=== PATIENT | male | born 1945 | race Caucasian/White ===

== ENCOUNTER 2019-05-31 09:22 | Inpatient (IN) | payer MEDICARE, OTHER ==
[~2019-05-31] VITALS: Ht 162.6 cm; Wt 69.6 kg
--- NOTE | 2019-05-31 09:38 | NUR ---
PT TO ROOM FOR BEDSIDE TRIAGE
--- NOTE | 2019-05-31 10:29 | NUR ---
PT SITTING UP ON STRETCHER; STATES HE STILL FEELS SOB AT THIS TIME; IV ANTIBIOTICS INFUSING TO LAC IV; SITE APPEARS HEALTHY; O2 SAT READING 98%ON 3LNC; VS; WILL CONTINUE TO MONITOR
[2019-05-31 10:51] LABS: HEMATOCRIT 31.8 % (39.0-50.0); HEMOGLOBIN 10.1 g/dl (14.0-18.0); IMMATURE GRANULOCYTES 0.4 % (0.0-5.0); MEAN CELL VOLUME 110.8 fL CALC (80.0-100.0); MEAN CORPUSCULAR HGB 35.2 pG CALC (26.0-32.0); MEAN CORPUSCULAR HGB CONC 31.8 g/L CALC (32.0-36.0); NEUT# 11.61 thou/uL (1.82-7.42); RED BLOOD COUNT 2.87 mill/uL (4.70-6.10); RED CELL DISTRI WIDTH 14.3 % (11.5-15.5)
[2019-05-31 10:58] LABS: ALBUMIN 4.2 g/dL (3.2-5.0); BILIRUBIN, TOTAL 0.4 mg/dL (0.0-1.4); CREATININE 3.1 mg/dL (0.7-1.3); POTASSIUM 3.7 mmol/l (3.5-5.1); TOTAL PROTEIN 7.2 g/dL (6.3-8.2)
--- NOTE | 2019-05-31 11:23 | NUR ---
PT MEDICATED PER MAR FOR NAUSEA AND COUGH, IVF INFUSING TO LAC; SITE APPEARS HEALTHY; PT ADVISED OF CONTINUED WAIT TIME AND PLAN TO ADMIT; VSS; WILL CONTINUE TO MONITOR
--- NOTE | 2019-05-31 12:00 | NUR ---
PT RESTING ON STRETCHER; LUNCH TRAY PROVIDED; PT ADVISED OF CONTINUED WAIT TIME FOR ADMISSION; VSS; WILL CONTINUE TO MONITOR
--- NOTE | 2019-05-31 13:06 | NUR ---
PT SITTING UP ON STRETCHER; NO S/S OF DISTRESS NOTED; VSS; O2 NC IN PLACE; IV PATENT; WILL CONTINUE TO MONITOR
[2019-05-31] MEDS ORDERED: LEVOTHYROXIN50 MCG PO (13:55)
[2019-05-31] MEDS ORDERED: METOPROL TAR25 MG PO (13:56)
[2019-05-31] MEDS ORDERED: LOSARTAN/HCT1 TA2 PO (13:56)
[2019-05-31] MEDS ORDERED: SERTRALINE HCL100 MG PO (13:56)
[2019-05-31] MEDS ORDERED: SIMVASTATIN40 MG PO (13:57)
[2019-05-31] MEDS ORDERED: CALCITRIOL 3 MCG/GM EX (13:58)
[2019-05-31] MEDS ORDERED: TAMSULOSIN HCL0.4 MG PO (13:58)
[2019-05-31] MEDS ORDERED: NIACIN ER1000 MG PO (13:58)
[2019-05-31] MEDS ORDERED: ASPIRIN CHEWABL81 MG PO (13:59)
[2019-05-31] MEDS ORDERED: SYMBICORT 80-4.5MCG PO (13:59)
[2019-05-31] MEDS ORDERED: ALBUTEROL SUL0.083 % NEB (14:00)
[2019-05-31] MEDS ORDERED: SPIRIVA IN (14:00)
[2019-05-31] MEDS ORDERED: MULTI VIT PO (14:00)
--- NOTE | 2019-05-31 14:00 | NUR ---
PT RESTING ON STRETCHER WITH EYES CLOSED; NO S/S OF DISTRESS NOTED; VSS; WILL CONTINUE TO MONITOR
[2019-05-31] MEDS ORDERED: B121000 MCG PO (14:01)
[2019-05-31] MEDS ORDERED: CHELATED MAGNE100 MG PO (14:01)
[2019-05-31] MEDS ORDERED: GLUCOSAMINE CHO1 CA3 (14:02)
[2019-05-31] MEDS ORDERED: VITAMIN C1000 MG PO (14:02)
[2019-05-31 15:00] VITALS: BP 127/62
--- NOTE | 2019-05-31 15:00 | NUR ---
Admission Note Report Given to: RALPH MCDANIEL Transported by: X Wheelchair Stretcher Transported with: X Nurse Transporter X Patent IV X O2 X Program Therapist Location: ICU X [facility]
--- NOTE | 2019-05-31 18:14 | NUR ---
Pt was admitted from ER at 1500. . O2 at 2l NC. Denies pain at this time. Will continue to monitor.
[2019-05-31 19:28] VITALS: BP 130/70
--- NOTE | 2019-05-31 20:00 | NUR ---
PT. RESTING IN BED WITH NO DISTRESS NOTED; DENIES PAIN. PT. REPORTS HE FEELS SLIGHTLY NAUSEOUS AND REPORTS HE CAN ONLY TAKE TUMS ASKED COOK FROZEN DESSERT ON THE FLOOR AND ORDERS RECEIVED FOR TUMS. PER PT. HE DOES NOT WANT THIS APPEALS REPRESENTATIVE TO GET ANY OTHER MEDICATION TO HELP WITH NAUSEA. ASSESSMENT COMPLETED. PT. ENCOURAGED TO DEEP BREATHE. INCENTIVE SPIROMETER GIVEN AND PT. PULLING 1250 AND GOAL SET TO 1500. IV SITE PATENT AND ORDERED IVF INFUSING WELL. UPDATED ON POC. CALL LIGHT IS IN REACH.
--- NOTE | 2019-05-31 21:20 | NUR ---
SPOKE WITH [facility] AND PER THEM WE DO NOT HAVE ACCESS TO TUMS THIS IS ONLY IN [facility] WHICH IS UNACCESSIBLE AT THIS TIME. UPDATED PT. WITH THIS.
[2019-05-31 23:15] VITALS: BP 119/57
--- NOTE | 2019-05-31 23:32 | NUR ---
PT. MEDICATED WITH ORDERED PRN ROBITUSSIN AC PER ORDER AND PT'S REQUEST. PT. REPORTS HE NORMALLY TAKES A SLEEPING PILL BUT UNSURE OF WHAT THE NAME IS AND IT IS NOT LISTED IN MED REC. OFFERED TO CALL ER MD FOR ORDERS FOR PRN SLEEP MEDICATION AND PT. DECLINES. PT. REPORTS HE DOESN'T LIKE TO TAKE MEDICATION HE DOES NOT NORMALLY TAKE FROM HOME.
[2019-05-31 23:46] LABS: URINE BILIRUBIN - DIPSTICK NEGATIVE (NEGATIVE); URINE BLOOD DIPSTICK TRACE-INTACT (NEGATIVE); URINE COLOR YELLOW; URINE GLUCOSE - DIPSTICK 250 mg/dL (NEGATIVE); URINE KETONE NEGATIVE (NEGATIVE); URINE LEUK ESTERASE NEGATIVE (NEGATIVE); URINE NITRITE - DIPSTICK NEGATIVE (Negative); URINE PH 5.5 (4.5-8.0); URINE PROTEIN - DIPSTICK 100 mg/dL (NEG-TRACE); URINE UROBILINOGEN - DIPSTICK 0.2 E.U./dL (0.2)
[2019-05-31 23:51] LABS: URINE EPITHELIAL CELLS FEW EPI/hpf (0-FEW); URINE MUCUS MODERATE hpf (NONE-FEW); URINE RBC 0-2 RBC/hpf (0-5)
--- NOTE | 2019-06-01 02:29 | NUR ---
RESTING IN BED WITH EYES CLOSED. NO DISTRESS NOTED.
[2019-06-01 03:53] VITALS: BP 139/70
--- NOTE | 2019-06-01 05:09 | NUR ---
PT. SITTING UP IN BED WITH NO DISTRESS NOTED;DENIES NEEDS/PAIN. SCHED MEDS GIVEN. ENCOURAGED TO CALL FOR ANY NEEDS. CALL LIGHT IS IN REACH.
[2019-06-01 08:09] VITALS: BP 126/63
[2019-06-01 09:32] LABS: HEMATOCRIT 28.4 % (39.0-50.0); MEAN CELL VOLUME 111.4 fL CALC (80.0-100.0); MEAN CORPUSCULAR HGB 35.3 pG CALC (26.0-32.0); MEAN CORPUSCULAR HGB CONC 31.7 g/L CALC (32.0-36.0); RED BLOOD COUNT 2.55 mill/uL (4.70-6.10); RED CELL DISTRI WIDTH 14.2 % (11.5-15.5)
[2019-06-01 09:50] LABS: POTASSIUM 4.4 mmol/l (3.5-5.1)
[2019-06-01 12:02] VITALS: BP 170/83
[2019-06-01] MEDS ORDERED: ROCALTROL0.25 MCG PO (15:01)
[2019-06-01 15:45] VITALS: BP 166/89
--- NOTE | 2019-06-01 17:00 | NUR ---
PATIENT A/OX3, NO C/O PAIN, NO S/S RESP DISTRESS, PATIENT ON O2 AT 3L, PATIENT WHEEZING MD AWARE, PATIENT ON NEB TX AND STERIODS, WILL CONTINUE TO MONIOR PATIENT, CALL WITHIN REACH
[2019-06-01 19:05] VITALS: BP 176/83
--- NOTE | 2019-06-01 20:01 | NUR ---
PT MEDICATED ORDERS PROVIDE AND PT ASSESSMENT COMPLETED. PT VERY TALKATIVE AND TELLING STORIES, BUT APPEARS VERY SOB UPON TALKING. 02 ON @3L NC. IV SITE IS LEAKING SLIGHTLY, RECEIVED FLUSH, BUT IS A LITTLE BLOODY, I REDRESSED SITE/PT REPORTS NOT WANTING NEW SITE DUE TO HIS "GOING HOME TOMORROW." WILL CONTINUE TO MONITOR,
--- NOTE | 2019-06-01 23:38 | NUR ---
PT MEDICATED ORDERS PROVIDE AND FOR COUGH PER REQUEST. PT DENIES ANY OTHER NEEDS AT THIS TIME. URINAL EMPTIED OF 200CC CLEAR YELLOW URINE AND PT REPORTS HAVING GONE IN TOILET HE WAS TRYING TO HAVE A BM.
[2019-06-02] VITALS: BP 143/81
[2019-06-02 03:59] VITALS: BP 154/73
--- NOTE | 2019-06-02 04:25 | NUR ---
IV FOUND DISLODGED. SITE APPEARS HEALTHY. NEW SITE ACCESSED AND IVF ADMINISTERED AT THIS TIME.
--- NOTE | 2019-06-02 05:54 | NUR ---
PT MEDICATED ORDERS PROVIDE, DENIES ANY OTHER NEEDS AT THIS TIME.
[2019-06-02 07:21] LABS: CREATININE 2.5 mg/dL (0.7-1.3); POTASSIUM 4.4 mmol/l (3.5-5.1)
[2019-06-02 07:29] VITALS: BP 169/94
--- NOTE | 2019-06-02 07:29 | NUR ---
PT RESTING IN BED, NO SIGNS OF DISTRESS NOTED, RESP EVEN AND UNLABORED, DISCUSSED POC. PT ALERT AND ORIENTED X3. PT ON O2 2L NC, ASSESSMENT COMPLETED, CALL LIGHT IN REACH,CONTINUE TO MONITOR.
--- NOTE | 2019-06-02 09:37 | NUR ---
INITATED IV ROCEPHIN, PT VOICES NO NEEDS OR COMPLAINTS AT THIS TIME, CALL LIGHT IN REACH,CONTINUE TO MONITOR.
[2019-06-02 10:43] VITALS: BP 152/92
[2019-06-02] MEDS ORDERED: LEVAQUIN750 MG PO (11:29)
[2019-06-02] MEDS ORDERED: COZAAR100 MG PO (11:29)
[2019-06-02] MEDS ORDERED: PREDNISONE10 MG PO (11:29)
--- NOTE | 2019-06-02 12:00 | NUR ---
IV SOLUMEDROL GIVEN, PT EAGER TO BE DISCHARGED. CALL LIGHT IN REACH,CONTINUE TO MONITOR.
--- NOTE | 2019-06-02 13:18 | NUR ---
DISCUSSED DISCHARGE INSTRUCTIONS, IV SITE REMOVED, CATHETER INTACT. PT GETTING DRESSED.
--- NOTE | 2019-06-02 13:34 | NUR ---
Discharge instructions given. Patient verbalizes understanding of same. Discharged in stable condition via Wheelchair to Home with spouse. All belongings sent with pt.
== END 2019-06-02 13:35 | disposition home or self-care (01) | DRG 193 ==
LOC: ED 09:22 → ED-I 10:44 → ED 11:17 → MS2 11:18
PROVIDERS: Family Medicine; ADMIT Internal Medicine; ATTEND Internal Medicine
DX: J18.9 Pneumonia, unspecified organism (principal); J96.21 Acute and chronic respiratory failure with hypoxia; J44.0 Chronic obstructive pulmonary disease with (acute) lower respiratory infection; J44.1 Chronic obstructive pulmonary disease with (acute) exacerbation; N17.9 Acute kidney failure, unspecified; N18.4 Chronic kidney disease, stage 4 (severe); I12.9 Hypertensive chronic kidney disease with stage 1 through stage 4 chronic kidney disease, or unspecified chronic kidney disease; I25.10 Atherosclerotic heart disease of native coronary artery without angina pectoris; N40.0 Benign prostatic hyperplasia without lower urinary tract symptoms; F17.200 Nicotine dependence, unspecified, uncomplicated; Z86.73 Personal history of transient ischemic attack (TIA), and cerebral infarction without residual deficits; Z99.81 Dependence on supplemental oxygen